=== PATIENT | female | born 1995 | race Caucasian/White ===

== ENCOUNTER → 2016-02-26 | Outpatient (CLI) | payer OTHER ==
[~2016-02-26] MED LIST: AMPH30TA2 PO; BCPILLS PO; COLC1CAP3 PO; HYDR200T5 PO; LEVO25TA PO; LSN25 PO; OXYC-57 PO
== END | disposition home or self-care (01) ==
LOC: C.RDSM 10:50
PROVIDERS: ATTEND Orthopaedic Surgery Sports Medicine
DX: M25.572 Pain in left ankle and joints of left foot (principal)

== ENCOUNTER → 2016-03-26 | Outpatient (CLI) | payer OTHER ==
[2016-03-26 16:54] LABS: THYROID STIMULATING HORMONE 3.04 uIu/ml (0.300-4.500)
== END | disposition home or self-care (01) ==
LOC: C.LAB1850 15:21
PROVIDERS: ATTEND Internal Medicine Endocrinology, Diabetes & Metabolism
DX: E03.9 Hypothyroidism, unspecified (principal)

== ENCOUNTER → 2016-03-28 | Outpatient (CLI) | payer OTHER ==
[2016-03-28 10:37] LABS: PREG INTERNAL NEGATIVE QC NEG CLEAR BACKGROUND; PREG INTERNAL POSITIVE QC POS CONTROL LINE
== END | disposition home or self-care (01) ==
LOC: C.LAB1850 09:35
PROVIDERS: ATTEND Obstetrics & Gynecology
DX: N91.2 Amenorrhea, unspecified (principal)

== ENCOUNTER → 2016-04-11 | Outpatient (CLI) | payer OTHER ==
--- NOTE | 2016-04-11 15:46 | DIAGNOSTIC IMAGING REPORT ---
CHEST 2 VIEWS ROUTINE CLINICAL HISTORY: COSTOCHONDRITIS ANTERIOR CHEST PAIN COMPARISON STUDY: 06/26/2015 FINDINGS: The cardiac and mediastinal contours are normal. There is no evidence of focal pulmonary consolidation. There is no evidence of failure. No pleural effusions are visualized.[ IMPRESSION: No active disease in the chest. Electronically signed by: Sukhdev Carbone M.D. 04/11/2016 3:45 PM Dictated Date/Time: 04/11/2016 3:44 PM
== END | disposition home or self-care (01) ==
LOC: C.RDSM 14:05
PROVIDERS: ATTEND Family Medicine Sports Medicine
DX: R07.9 Chest pain, unspecified (principal); M94.0 Chondrocostal junction syndrome [Tietze]

== ENCOUNTER 2016-05-12 18:38 | Emergency (ER) | payer OTHER ==
[~2016-05-12] VITALS: Ht 154.9 cm; Wt 51.2 kg
[~2016-05-12 18:38] MED LIST changes: -BCPILLS PO; -COLC1CAP3 PO; -HYDR200T5 PO; -LSN25 PO; -OXYC-57 PO
[2016-05-12 19:08] VITALS: TEMP 37; Ht 154.9 cm; Wt 51.2 kg
[2016-05-12] MEDS ORDERED: OXYCODONE HCL IR 5 MG TAB (IMMEDIATE RELEASE) PO STA ×2 (20:15→22:37)
[2016-05-12] MEDS ORDERED: HYDR200T5 PO (20:28)
[2016-05-12] MEDS ORDERED: COLC1CAP3 PO (20:28)
[2016-05-12] MEDS ORDERED: LSN25 PO (20:28)
[2016-05-12] MEDS ORDERED: BCPILLS PO (20:28)
[2016-05-12 20:30] VITALS: O2SAT 100
[2016-05-12 20:36] LABS: URINE APPEARANCE CLEAR (CLEAR); URINE BILIRUBIN NEG (NEG); URINE COLOR YELLOW; URINE EPITHELIAL CELL AUTO >30 /lpf (0-5); URINE NITRITE NEG (NEG); URINE SPECIFIC GRAVITY 1.014 (1.000-1.030); UROBILINOGEN NEG (NEG)
[2016-05-12 20:38] LABS: MANUAL MICROSCOPIC REQUIRED? NO; REVIEW REQ? NO
[2016-05-12 20:41] LABS: BASO % 0.1 %; BASO ABS # 0.01 K/uL (0-0.2); COMPLETE YES; EOS % 1.3 %; HEMATOCRIT 42.4 % (37-47); IG% 0.2 %; LYMPH % 13.8 %; LYMPH ABS # 1.26 K/uL (1.2-3.4); MEAN CELL VOLUME 84.3 fL (80-100); MEAN CORPUSCULAR HEMOGLOBIN 30.4 pg (25-34); MEAN CORPUSCULAR HGB CONC 36.1 g/dl (32-36); MEAN PLATELET VOLUME 9.7 fL (7.4-10.4); MONO % 10.6 %; PLATELET COUNT 247 K/uL (130-400); RED BLOOD COUNT 5.03 M/uL (4.2-5.4); WHITE BLOOD COUNT 9.15 K/uL (4.8-10.8)
[2016-05-12 20:52] LABS: INR 0.9 (0.9-1.1); PARTIAL THROMBOPLASTIN RATIO 0.9
[2016-05-12 21:11] LABS: ALT/SGPT 18 U/L (12-78); AST/SGOT 10 U/L (15-37); BLOOD UREA NITROGEN 7 mg/dl (7-18); BUN/CREATININE RATIO 9.1 (10-20); CALCIUM 8.5 mg/dl (8.5-10.1); CARBON DIOXIDE 28 mmol/L (21-32); CHLORIDE 106 mmol/L (98-107); CREATININE 0.76 mg/dl (0.60-1.20); GLUCOSE 77 mg/dl (70-99); POTASSIUM 3.8 mmol/L (3.5-5.1); SODIUM 141 mmol/L (136-145)
[2016-05-12 21:16] LABS: ALKALINE PHOSPHATASE 40 U/L (45-117)
--- NOTE | 2016-05-12 21:20 | DIAGNOSTIC IMAGING REPORT ---
LEFT RIBS UNILATERAL WITH PA CHEST CLINICAL HISTORY: Left-sided rib pain. COMPARISON STUDY: Chest radiograph April 11, 2016. FINDINGS: There is no pneumothorax or pleural effusion. Lung volumes are normal. No consolidation is identified. A 6 mm nodular density projects over the left midlung. No acute left-sided rib fractures are identified. IMPRESSION: 1. No pneumothorax. No acute left rib fractures. 2. 6 mm nodular density projecting over the left midlung which can be assessed on subsequent chest CT. Electronically signed by: Candido Haider M.D. 05/12/2016 9:18 PM Dictated Date/Time: 05/12/2016 9:16 PM
[2016-05-12] MEDS ORDERED: OPTIRAY 320 IV PRN (22:30)
--- NOTE | 2016-05-12 22:48 | DIAGNOSTIC IMAGING REPORT ---
CT ANGIOGRAPHY OF THE CHEST, PULMONARY EMBOLUS PROTOCOL CLINICAL HISTORY: Chest pain. Left-sided rib pain. COMPARISON STUDY: Chest radiograph April 11, 2016. TECHNIQUE: Following IV administration of 82 mL of Optiray-320, helical axial images of the chest were obtained utilizing the pulmonary embolus protocol. Maximal intensity projections and sagittal and coronal reformats were viewed on an independent 3D workstation. IV contrast was administered without complication. CT DOSE: 177.79 mGy.cm FINDINGS: No pulmonary emboli are identified. There is no evidence of thoracic aortic dissection. The size of the heart is normal. There are no enlarged thoracic lymph nodes. Central airways are patent. There is no consolidation to suggest pneumonia. A tubular left lower lobe nodule is noted. The largest component of this nodule measures 7 mm. This is shown on axial image 114 of 276. There is no pneumothorax or pleural effusion. Visualized portions of the bony thorax and upper abdomen are unremarkable. IMPRESSION: 1. No pulmonary emboli identified. 2. No acute intrathoracic findings. 3. Tubular left lower lobe pulmonary nodule with the largest component measuring 7 mm. This is likely benign but a follow-up chest CT in 6 months to ensure stability is recommended. Electronically signed by: Candido Haider M.D. 05/12/2016 10:47 PM Dictated Date/Time: 05/12/2016 10:40 PM
[2016-05-12] MEDS ORDERED: OXYC-57 PO (22:54)
--- NOTE | 2016-05-12 22:55 | EMERGENCY ROOM VISIT NOTE ---
History Report prepared by Lyndon: Harlan Polo Under the Supervision of: Dr. Sergo Landrum D.O. First contact with patient: 20:09 Chief Complaint: CHEST PAIN Stated Complaint: PAIN IN CHEST AND LUNG AREA History of Present Illness The patient is a 20 year old female who presents to the Emergency Room with complaints of worsening left sided chest pain beginning last night. She notes she was lying down when her pain began. The patient was diagnosed with pericarditis 6 weeks ago and has been taking colchicine daily. Her last bout of chest pain was about 1 month ago and she notes that this pain is not similar to the pain she experienced with the pericarditis. She notes her pain is worsened with breathing, and denies having any rashes on her breasts, cough, fever, or recent illness. She tried Tylenol but has had no relief of her symptoms. She notes she cannot have any NSAIDs. 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 The patient adds that she has lupus. Source of History: patient Onset: last night Position: chest (left) Quality: other (chest pain) Timing: worsening Modifying Factors (Worsening): breathing Associated Symptoms: No cough, No fevers, No rash Review of Systems See HPI for pertinent positives & negatives. A total of 10 systems reviewed and were otherwise negative. Past Medical & Surgical Medical Problems: (1) History of lupus Family History No pertinent family history stated. Social History Smoking Status: Never Smoker Housing Status: lives with roommate Occupation Status: [employer] student Current/Historical Medications Scheduled Control Pills ( Control Pills), 1 TAB PO HS Colchicine (Colchicine), 1 TAB PO DAILY Hydroxychloroquine Sulfate (Plaquenil), 200 MG PO DAILY Levothyroxine Sodium (Synthroid), 25 MCG PO QAM Lisinopril (Lisinopril), 2.5 MG PO HS Scheduled PRN Amphetamine-Dextroamphetamine 30MG (Adderall 30MG), 30 MG PO DAILY PRN for PRN Oxycodone/Acetaminophen 5MG/325MG (Percocet 5MG/325MG), 1 TAB PO Q6H PRN for Pain Allergies Coded Allergies: No Known Allergies (Unverified , 05/12/16) Physical Exam Vital Signs Date Time Temp Pulse Resp B/P Pulse Ox O2 Delivery O2 Flow Rate FiO2 05/12/16 22:38 99 15 100 05/12/16 22:32 107/61 05/12/16 22:08 100 14 99/56 97 Room Air 05/12/16 22:08 97 17 99/56 98 05/12/16 21:38 91 7 98 05/12/16 21:08 86 8 98 05/12/16 21:07 93 20 107/55 100 Room Air 05/12/16 21:05 107/55 05/12/16 20:38 72 16 98 05/12/16 20:30 100 Room Air 05/12/16 20:23 100 Room Air 05/12/16 20:17 109 05/12/16 20:12 138/90 05/12/16 20:11 96 16 138/90 100 Room Air 05/12/16 19:11 95 Room Air 05/12/16 19:08 37.0 98 18 151/79 100 Room Air Physical Exam CONSTITUTIONAL/VITAL SIGNS: Reviewed / noted above. GENERAL: Non-toxic in appearance. INTEGUMENTARY: Warm, dry, and [place]. HEAD: Normocephalic. EYES: without scleral icterus or trauma. ENT/OROPHARYNX: clear and moist. LYMPHADENOPATHY/NECK: Is supple without lymphadenopathy or meningismus. RESPIRATORY: Lungs clear and equal. CARDIOVASCULAR: Regular rate and rhythm. GI/ABDOMEN: Soft and nontender. No organomegaly or pulsatile mass. No rebound or guarding. Normal bowel sounds. EXTREMITIES: Warm and well perfused. BACK: No CVA tenderness. NEUROLOGICAL: Intact without focal deficits. PSYCHIATRIC: normal affect. MUSCULOSKELETAL: Normally developed with good muscle tone. Medical Decision & Procedures ER Provider Diagnostic Interpretation: Radiology results as stated below per my review and radiologist interpretation: LEFT RIBS UNILATERAL WITH PA CHEST FINDINGS: There is no pneumothorax or pleural effusion. Lung volumes are normal. No consolidation is identified. A 6 mm nodular density projects over the left midlung. No acute left-sided rib fractures are identified. IMPRESSION: 1. No pneumothorax. No acute left rib fractures. 2. 6 mm nodular density projecting over the left midlung which can be assessed on subsequent chest CT. Electronically signed by: Candido Haider M.D. 05/12/2016 9:18 PM Dictated Date/Time: 05/12/2016 9:[address] ANGIOGRAPHY OF THE CHEST, PULMONARY EMBOLUS PROTOCOL FINDINGS: No pulmonary emboli are identified. There is no evidence of thoracic aortic dissection. The size of the heart is normal. There are no enlarged thoracic lymph nodes. Central airways are patent. There is no consolidation to suggest pneumonia. A tubular left lower lobe nodule is noted. The largest component of this nodule measures 7 mm. This is shown on axial image 114 of 276. There is no pneumothorax or pleural effusion. Visualized portions of the bony thorax and upper abdomen are unremarkable. IMPRESSION: 1. No pulmonary emboli identified. 2. No acute intrathoracic findings. 3. Tubular left lower lobe pulmonary nodule with the largest component measuring 7 mm. This is likely benign but a follow-up chest CT in 6 months to ensure stability is recommended. Laboratory Results 05/12/16 20:30 Red Blood Count 5.03, Mean Corpuscular Volume 84.3, Mean Corpuscular Hemoglobin 30.4, Mean Corpuscular Hemoglobin Concent 36.1, Mean Platelet Volume 9.7, Neutrophils (%) (Auto) 74.0, Lymphocytes (%) (Auto) 13.8, Monocytes (%) (Auto) 10.6, Eosinophils (%) (Auto) 1.3, Basophils (%) (Auto) 0.1, Neutrophils # (Auto ) 6.77, Lymphocytes # (Auto) 1.26, Monocytes # (Auto) 0.97, Eosinophils # (Auto ) 0.12, Basophils # (Auto) 0.01 05/12/16 20:30 Test 05/12/16 20:10 05/12/16 20:30 05/12/16 20:37 Urine Color YELLOW Urine Appearance CLEAR (CLEAR) Urine pH 6.0 (4.5-7.5) Urine Specific [place] 1.014 (1.000-1.030) Urine Protein TRACE (NEG) Urine Glucose (UA) NEG (NEG) Urine Ketones NEG (NEG) Urine Occult Blood NEG (NEG) Urine Nitrite NEG (NEG) Urine Bilirubin NEG (NEG) Urine Urobilinogen NEG (NEG) Urine Leukocyte Esterase NEG (NEG) Urine WBC (Auto) 1-5 /hpf (0-5) Urine RBC (Auto) 0-4 /hpf (0-4) Urine Hyaline Casts (Auto) 1-5 /lpf (0-5) Urine Epithelial Cells (Auto) >30 /lpf (0-5) Urine Bacteria (Auto) NEG (NEG) White Blood Count 9.15 K/uL (4.8-10.8) Red Blood Count 5.03 M/uL (4.2-5.4) Hemoglobin 15.3 g/dL (12.0-16.0) Hematocrit 42.4 % (37-47) Mean Corpuscular Volume 84.3 fL (80-100) Mean Corpuscular Hemoglobin 30.4 pg (25-34) Mean Corpuscular Hemoglobin Concent 36.1 g/dl (32-36) Platelet Count 247 K/uL (130-400) Mean Platelet Volume 9.7 fL (7.4-10.4) Neutrophils (%) (Auto) 74.0 % Lymphocytes (%) (Auto) 13.8 % Monocytes (%) (Auto) 10.6 % Eosinophils (%) (Auto) 1.3 % Basophils (%) (Auto) 0.1 % Neutrophils # (Auto) 6.77 K/uL (1.4-6.5) Lymphocytes # (Auto) 1.26 K/uL (1.2-3.4) Monocytes # (Auto) 0.97 K/uL (0.11-0.59) Eosinophils # (Auto) 0.12 K/uL (0-0.5) Basophils # (Auto) 0.01 K/uL (0-0.2) RDW Standard Deviation 37.7 fL (36.4-46.3) RDW Coefficient of Variation 12.3 % (11.5-14.5) Immature Granulocyte % (Auto) 0.2 % Immature Granulocyte # (Auto) 0.02 K/uL (0.00-0.02) Prothrombin Time 10.0 SECONDS (9.0-12.0) Prothromb Time International Ratio 0.9 (0.9-1.1) Activated Partial Thromboplast Time 24.5 SECONDS (21.0-31.0) Partial Thromboplastin Ratio 0.9 Anion Gap 7.0 mmol/L (3-11) Est Creatinine Clear Calc Drug Dose 88.3 ml/min Estimated GFR () 130.0 Estimated GFR (Non- 112.1 BUN/Creatinine Ratio 9.1 (10-20) Calcium Level 8.5 mg/dl (8.5-10.1) Total Bilirubin 0.7 mg/dl (0.2-1) Direct Bilirubin 0.1 mg/dl (0-0.2) Aspartate Amino Transf (AST/SGOT) 10 U/L (15-37) Alanine Aminotransferase (ALT/SGPT) 18 U/L (12-78) Alkaline Phosphatase 40 U/L (45-117) Total Creatine Kinase 86 U/L (26-192) Creatine Kinase MB < 0.5 ng/ml (0.5-3.6) Creatine Kinase MB Ratio (0-3.0) Total Protein 7.3 gm/dl (6.4-8.2) Albumin 3.1 gm/dl (3.4-5.0) Lipase 275 U/L (73-393) Bedside D-Dimer > 450 ng/mlFEU (0-450) Bedside Troponin I 0.010 ng/ml (0-0.045) Laboratory results as stated above per my review. Medications Administered Medications (Trade) Dose Ordered Sig/Izzy Route Start Time Stop Time Status Last Admin Dose Admin Oxycodone HCl (Roxicodone Immediate Rel Tab) 5 mg NOW STAT PO 05/12/16 20:15 05/12/16 20:19 DC 05/12/16 20:25 5 MG Oxycodone HCl (Roxicodone Immediate Rel Tab) 5 mg NOW STAT PO 05/12/16 22:37 05/12/16 22:38 DC 05/12/16 22:43 5 MG Oxycodone/ Acetaminophen (Percocet 5/ 325MG Home Pack) 1 homepack UD ONCE PO 05/12/16 23:00 05/12/16 23:01 DC 05/12/16 23:08 1 HOMEPACK ECG Indication: chest pain Rate (beats per minute): 93 Rhythm: normal sinus Findings: nonspecific-ST abn, no acute ischemic change, no ectopy ED Course 2010: Previous medical records were reviewed. The patient was evaluated in room B5. A complete history and physical examination was performed. 2014: Ordered Oxycodone HCl 5 mg PO. 2236: Ordered Oxycodone HCl 5 mg PO. 2299: On reevaluation, the patient is doing well. I discussed the results and findings with the patient. She verbalized agreement of the treatment plan. The patient was discharged home. Medical Decision the differential was considered includes acute myocardial infarction, acute coronary syndrome, myocarditis, pericarditis, pericardial effusions /tamponad, esophageal perforation, thoracic aortic dissection, pulmonary embolism, pneumonia, pneumothorax, pancreatitis, shingles, acute cholecystitis, perforated abdominal viscus. This is a 20-year-old female who presents to the ED with a chief complaint of left-sided chest pain. The patient states that her symptoms started last night and it seemed to be worse since then. She states that she was lying down when it started. She did have a gymnastic tournament over the weekend. She denies any specific trauma. She states that her pain is worse with exhalation. She has a history of lupus. She is currently on colchicine finishing a 6 week course for pericarditis. The patient's vital signs are stable. Her physical exam did not reveal any obvious reproducible pain. The lungs are clear. There is no rashes. Troponin was negative. CBC is normal. D-dimer was elevated. Urine did not show infection. Chest x-ray did not show acute disease. CMP was normal. CT scan of the chest did not show any acute process. There was a left lower lobe nodule and a CT scan follow-up was recommended in 6 months. The patient was told the results. She was treated with oxycodone code on by mouth. She is felt to be stable for discharge. Impression Primary Impression: Left sided chest pain Scribe Attestation The scribe's documentation has been prepared under my direction and personally reviewed by me in its entirety. I confirm that the note above accurately reflects all work, treatment, procedures, and medical decision making performed by me. Departure Information Dispostion Home / Self-Care Prescriptions Oxycodone/Acetaminophen 5MG/325MG (PERCOCET 5MG/325MG) Tab 1 TAB PO Q6H Y for Pain, #10 TAB Prov: Sergo Landrum D.O. 05/12/16 Referrals Liza Balderas M.D. (PCP) [facility] Instructions [facility] Additional Instructions Percocet as prescribed. No driving within 6 hours of use. Do not take additional Tylenol while taking Percocet. CT scan today of your chest revealed a 7 mm nodule. A follow-up CT scan of the chest was recommended in 6 months to confirm stability of the nodule. Follow-up with your doctor for further care and evaluation in 1-2 days. Return to the emergency department for worsening or new symptoms or any concerns. You have been examined and treated today on an emergency basis only. This is not a substitute for, or an effort to provide, complete comprehensive medical care. It is impossible to recognize and treat all injuries or illnesses in a single emergency department visit. It is therefore important that you follow up closely with your doctor. Call as soon as possible for an appointment.
[2016-05-12] MEDS ORDERED: PERCOCET HOME PACK PO ONE (23:00)
[2016-05-12 23:10] VITALS: BP 117/56; PULSE 96; O2SAT 98
== END 2016-05-12 23:10 | disposition home or self-care (01) ==
LOC: C.EDB 18:39
DX: R07.9 Chest pain, unspecified (principal); R91.1 Solitary pulmonary nodule